=== PATIENT | female | born 1995 | race Caucasian/White ===

== ENCOUNTER 2019-10-15 21:30 | Emergency (ER) | payer BC ==
[~2019-10-15] VITALS: Ht 160 cm; Wt 50.9 kg
[2019-10-15 21:36] VITALS: BP 139/71; TEMP 98.6
[2019-10-15] MEDS ORDERED: AMOXICILLIN 8751 TAB PO (23:04)
[2019-10-15 23:18] VITALS: PULSE 108
== END 2019-10-15 23:18 | disposition home or self-care (01) ==
LOC: COL.ER 21:30
DX: S01.511A Laceration without foreign body of lip, initial encounter (principal); W54.0XXA Bitten by dog, initial encounter; Y92.009 Unspecified place in unspecified non-institutional (private) residence as the place of occurrence of the external cause